=== PATIENT | male | born 1995 | race Caucasian/White ===

== ENCOUNTER 2019-12-22 16:13 | Observation (INO) | payer OTHER ==
[2019-12-22] MEDS ORDERED: NS 0.9% 1000 ML** 1,000 ML IV ONE (16:48)
[2019-12-22] MEDS ORDERED: Ondansetron INJ* 2 MG/ML VIAL IV ONE (16:48)
--- NOTE | 2019-12-22 16:49 | ED ---
Nausea/Vomiting/Diarrhea HPI - HPI Summary HPI Summary: Patient complains of intermittent nausea 1 week with 2 episodes of vomiting over that same week. Nausea is random onset, not related to eating. Patient states nausea has actually been improving over the past couple days but had abnormal labs per [facility], with elevated bilirubin and elevated liver enzymes. Patient's girlfriend also states patient's eyes appear to be more yellow. Patient also states his urine has been darker over the past few days. Patient was also tested for covid today. Results pending. Denies fever, cough , sore throat, CP, SOB, diarrhea, abdominal pain, change in BM. Denies known exposure or recent travel. Denies known contact exposure. Denies EtOH, IV drug use. Denies prior history of liver or gallbladder issues. Medical history is none. - History of Current Complaint Stated Complaint: ABNORMAL LABS PER PT Time Seen by Provider: 12/22/19 16:42 Hx Obtained From: Patient Onset/Duration: Gradual Onset, Lasting Days Timing: Intermittent Episodes Lasting: Severity Currently: Moderate Pain Scale Used: 0-10 Numeric Aggravating Factor(s): Nothing Nausea/Vomiting Presence: Nauseated Vomiting Characteristics: Nonbilious Diarrhea Presence: No - Allergies/Home Medications Allergies/Adverse Reactions: Allergies Allergy/AdvReac Type Severity Reaction Status Date / Time No Known Allergies Allergy Verified 12/22/19 17:20 Home Medications: Home Medications NK [No Home Medications Reported] 12/22/19 [History Confirmed 12/22/19] PMH/Surg Hx/FS Hx/Imm Hx Endocrine/Hematology History: Denies: Hx Anticoagulant Therapy Cardiovascular History: Denies: Hx Pacemaker/ICD Respiratory History: Denies: Hx Chronic Obstructive Pulmonary Disease (COPD) History: Denies: Hx Dialysis Sensory History: Denies: Hx Eye Prosthesis Opthamlomology History: Denies: Hx Legally Blind EENT History: Denies: Hx Deafness Neurological History: Denies: Hx Dementia - Family History Known Family History: Positive: Non-Contributory - Social History Alcohol Use: None Hx Substance Use: No Hx Tobacco Use: No Review of Systems Constitutional: Negative Positive: Other - yellowing ENT: Negative Cardiovascular: Negative Respiratory: Negative Positive: Vomiting, Nausea Genitourinary: Negative Musculoskeletal: Negative Skin: Negative Neurological/Mental Status: Negative Psychological: Normal All Other Systems Reviewed And Are Negative: Yes Physical Exam - Summary Physical Exam Summary: Patient's corneas appear to be mildly jaundiced. Abdomen soft nontender. No apparent distress. Triage Information Reviewed: Yes Vital Signs Reviewed: Yes Appearance: Positive: Well-Appearing Skin: Positive: Warm Head/Face: Positive: Normal Head/Face Inspection Eyes: Positive: Other: ENT: Positive: Normal ENT inspection Neck: Positive: Supple Respiratory/Lung Sounds: Positive: Clear to Auscultation Cardiovascular: Positive: Normal Abdomen Description: Positive: Nontender Musculoskeletal: Positive: Normal Neurological: Positive: Normal Psychiatric: Positive: Normal AVPU Assessment: Alert - Fatoumata Coma Scale Best Eye Response: 4 - Spontaneous Best Motor Response: 6 - Obeys Commands Best Verbal Response: 5 - Oriented Coma Scale Total: 15 Procedures - Sedation Patient Received Moderate/Deep Sedation with Procedure: No Diagnostics - Laboratory Result Diagrams: 12/22/19 17:30 12/22/19 17:30 Lab Statement: Any lab studies that have been ordered have been reviewed, and results considered in the medical decision making process. Naus/Vom/Diarrhea Course/Dx - Course Course Of Treatment: Patient complains of intermittent nausea 1 week with 2 episodes of vomiting over that same week. Nausea is random onset, not related to eating. Patient states nausea has actually been improving over the past couple days but had abnormal labs per [facility], with elevated bilirubin and elevated liver enzymes. Patient's girlfriend also states patient's eyes appear to be more yellow. Patient also states his urine has been darker over the past few days. Patient was also tested for covid today. Results pending. Denies fever, cough, sore throat, CP, SOB, diarrhea, abdominal pain, change in BM. Denies known exposure or recent travel. Denies known contact exposure. Denies EtOH, IV drug use. Denies prior history of liver or gallbladder issues. Medical history is none. Vital signs within normal limits. WBC 16.6. Hemoglobin 13.7. Normal INR and PTT. Total Bilirubin 6.4. AST 236. ALT 483. Alkaline phosphatase 500. Ammonia 76. Ultrasound of gallbladder and liver unremarkable. Grimes positive. Discussed patient exam and findings with GI Dr. Keenan who recommended admission for observation as patient is [employer] student , does not have a local primary care. Dr. Keenan will be in hospital tomorrow and cannot see patient in clinic. Admitted to hospitalist - Differential Dx/Diagnosis Provider Diagnosis: Elevated LFTs, Total bilirubin, elevated, Elevated alkaline phosphatase level, Jaundice, Mononucleosis Condition At Discharge: Stable Discharge ED - Sign-Out/Discharge Documenting (check all that apply): Patient Departure - Discharge Plan Condition: Stable Disposition: ADMITTED TO [facility] - Billing Disposition and Condition Condition: STABLE Disposition: Admitted to [facility]
[2019-12-22 17:40] LABS: Hematocrit 41 % (42-52); Hemoglobin 13.7 g/dL (14.0-18.0); Mean Corpuscular HGB Conc 34 g/dL (31-36); Mean Corpuscular Hemoglobin 29 pg (27-31); Mean Corpuscular Volume 85 fL (80-94); Mean Platelet Volume 8.6 fL (7.4-10.4); Platelet Count 172 10^3/uL (150-450); Red Blood Count 4.77 10^6 /uL (4.18-5.48); Red Cell Distribution Width 15 % (10-15); White Blood Count 16.6 10^3/uL (3.5-10.8)
[2019-12-22 17:49] LABS: Activated Partial Thrombo Time 36.3 seconds (26.0-38.0); INR 1.03 (0.82-1.09)
[2019-12-22 17:58] LABS: Albumin 3.8 g/dL (3.2-5.2); BUN/Creatinine Ratio 9.2 (8-20); C Reactive Protein 7.47 mg/L (<8.01); Calcium 9.2 mg/dL (8.6-10.3); EGFR African American 93.4 (>60); EGFR Non-African American 77.2 (>60); Globulin 3.7 g/dL (2-4); Potassium 3.5 mmol/L (3.5-5.0); Total Bilirubin 6.4 mg/dL (0.2-1.0); Total Protein 7.5 g/dL (6.4-8.9)
[2019-12-22 18:43] LABS: Urine Appearance Clear; Urine Bilirubin 2+ (Negative); Urine Blood Negative (Negative); Urine Color Amber; Urine Glucose Negative (Negative); Urine Ketones Negative (Negative); Urine Nitrite Negative (Negative); Urine Protein Negative (Negative); Urine Specific Gravity 1.016 (1.010-1.030); Urine Urobilinogen Positive (Negative)
[2019-12-22 18:44] LABS: Hepatitis B Surface Antigen Nonreactive (Nonreactive)
[2019-12-22 19:01] LABS: Hepatitis C Antibody Negative (Negative)
[2019-12-22 19:25] LABS: ABS Basophils 0.1 10^3/ul (0-0.2); ABS Lymphocytes 12.6 10^3/ul (1.0-4.8); ABS Monocytes 1.4 10^3/ul (0-0.8); ABS Neutrophils 2.4 10^3/ul (1.5-7.7); Eosinophil % 0.1 %; Lymphocyte % 76.2 %; Nucleated Red Blood Cells % 0.1
[2019-12-22] MEDS ORDERED: Ondansetron INJ* 2 MG/ML VIAL IV PRN (22:49)
[2019-12-22] MEDS ORDERED: Enoxaparin(*) 40 MG/0.4 ML SYR SUBCUT SCH (23:00)
--- NOTE | 2019-12-23 00:54 | HP ---
CC: [facility]* ADMISSION HISTORY AND PHYSICAL: DATE OF ADMISSION: 12/22/19 PRIMARY CARE PROVIDER: [facility]. HEALTHCARE PROXY: His mother. CODE STATUS: Full. SOURCE OF INFORMATION: History obtained from interview with the patient, review of past medical records. Reliability is very good. CHIEF COMPLAINT: Abnormal labs. HISTORY OF PRESENT ILLNESS: This is a 23-year-old [employer] , living off campus with his girlfriend, has been in his usual state of health, traveled by car with his girlfriend to [place] approximately 3 weeks prior to presentation. He notes that they practiced social distancing en route, wore face masks, however, in 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 Nobody was sick there, drove home 1 week prior to presentation, and on returning home 1 week prior, started feeling more fatigued, was sleeping more, had an episode of nausea or vomiting 6 days prior to presentation and 5 days prior to presentation felt subjective fevers, almost every day, but did not have a thermometer to check. He had no diarrhea. No additional nausea or vomiting. He had good p.o. intake. He has an intermittent cough chronically, does not feel if it was any worse or better over the last week. No shortness of breath. No chest pain. He did note that his urine was getting darker. For this reason, he went to [facility] where his labs were checked. He notes that today he was feeling the best he has since 1 week ago. No additional nausea. Energy is starting to be better, although still does feel weak, has not felt febrile; however, his labs returned at [facility] notable for leukocytosis and abnormal LFTs for which he was directed to [facility]. PAST MEDICAL HISTORY: No known past medical history. PAST SURGICAL HISTORY: No past surgeries. MEDICATIONS: No home medications. ALLERGIES: No known drug allergies. FAMILY HISTORY: No history of gallbladder disease. SOCIAL HISTORY: [facility]. He drinks intermittently. No tobacco. REVIEW OF SYSTEMS: He denies sore throat, rhinorrhea, any indication of enlarged lymph nodes, or other sick contacts noticed. Girlfriend has also been feeling well. He endorses intermittent headache over the last week. PHYSICAL EXAMINATION GENERAL: Appears stated age, young, well nourished, non-ill appearing. VITAL SIGNS: In the emergency room, T-max is 99.3, blood pressure 137/75, heart rate is 95, respiratory rate is 16, he is 97% on room air. HEENT: Oropharynx clear. He has moist mucous membranes. Sclerae are anicteric. He has mild conjunctival icterus. NECK: He has non-elevated JVD. He has no cervical, supraclavicular, or posterior auricular lymphadenopathy. LUNGS: Lungs are clear to auscultation throughout in all puente. HEART: Regular rate and rhythm. No murmurs, rubs, or gallops. ABDOMEN: Soft, nontender, and nondistended. No Mcneil sign. Positive bowel sounds throughout. EXTREMITIES: Warm and well perfused. No clubbing, cyanosis, or edema. He has bruising on his right fourth finger as well as a small laceration. Otherwise, no skin lesion. NEUROLOGIC: He is alert and oriented x3. His cranial nerves II through XII are intact. Strength is intact. He has no apparent anxiety, agitation, or depression. DIAGNOSTIC STUDIES/LAB DATA: Labs are reviewed. White blood cell count is 16.6, neutrophils are 14.4%, lymphocytes are 76%, reactive lymphs are 18%, hemoglobin is 13.7. No prior for comparison. Platelets 172. INR is 1.0. Sodium is 133, BUN is 11, creatinine 1.19. Total bilirubin 6.4, direct bilirubin 4.2, AST 236, ALT 483, alk phos 500, ammonia is 76, CRP 7.47, lipase is 39. Urine is positive for urobilinogen and bilirubin. Serology is notable for mono screen positive, negative hepatitis viral panel. Data reviewed. Ultrasound of his gallbladder, liver is mildly echogenic. Gallbladder is contracted. No stones are seen. No focal tenderness. Common bile duct measures 2 mm, which is normal. Borderline enlarged mild fatty liver. ASSESSMENT AND PLAN: This is a 23-year-old man presenting with 1 week of fatigue, subjective fevers and nausea, found with abnormal liver enzymes. 1. Hyperbilirubinemia and abnormal liver function tests - can be consistent cholestasis in the setting of Patience-Quiroz virus. I suspect that this is the etiology given the positive test. Repeat LFTs tomorrow after hydration. The predominant portion is direct and he has an elevated alk phos, although his ultrasound is normal without indication of any level of obstruction. At this point, I am not going to order any additional testing. I did discuss with Dr. Keenan this evening and he will see the patient tomorrow. While elevated bilirubin is described in the literature in the setting of EBV, Dr. Keenan did feel this was quite high and elevated alkaline phosphatase was not completely consistent with the cholestasis in the setting of mononucleosis. Therefore, an observation stay for further monitoring was deemed necessary. 2. SARS-CoV-2 testing/COVID-19, symptoms are similarly consistent with COVID in the setting of fatigue and fevers in this young man, who has not been adequately practicing social distancing with his recent cross-country trip and visit with his family for 2 weeks with return 1 week prior to presentation. He does have a more likely etiology for subjective fever and is positive EBV; however, this does not rule out COVID. He currently lives with his girlfriend. We discussed that in the setting that he is ready for discharge, he will need to quarantine until his negative test returns. He will start discussing with his girlfriend in order for her to find another location should he be able to be discharged shortly in the next 1 or 2 days if the test has not returned. Until then, maintaining strict precautions in the hospital and symptomatic management. 3. Fatty liver indication that he may have a slightly enlarged fatty liver on ultrasound. This will be need further outpatient monitoring and counseling to prevent progression in this young man. 4. DVT prophylaxis: Lovenox. Of separate note, tomorrow is this patient's birthday and he is a senior at [employer]. Currently, socially isolating himself in important year. Please wish him happy birthday. [id number]/[facility] #: [id number] [facility]
[2019-12-23 06:05] LABS: Hematocrit 38 % (42-52); Mean Corpuscular HGB Conc 34 g/dL (31-36); Mean Corpuscular Hemoglobin 29 pg (27-31); Mean Corpuscular Volume 85 fL (80-94); Mean Platelet Volume 8.5 fL (7.4-10.4); Platelet Count 165 10^3/uL (150-450); Red Blood Count 4.46 10^6 /uL (4.18-5.48); Red Cell Distribution Width 15 % (10-15); White Blood Count 16.4 10^3/uL (3.5-10.8)
[2019-12-23 06:23] LABS: Albumin 3.4 g/dL (3.2-5.2); BUN/Creatinine Ratio 8.5 (8-20); Calcium 8.7 mg/dL (8.6-10.3); EGFR African American 84.3 (>60); EGFR Non-African American 69.6 (>60); Globulin 3.3 g/dL (2-4); Indirect Bilirubin 2.1 mg/dL (0.3-1.0); Potassium 4.1 mmol/L (3.5-5.0); Total Protein 6.7 g/dL (6.4-8.9)
--- NOTE | 2019-12-23 11:07 | CONS ---
GASTROENTEROLOGY CONSULT: DATE OF CONSULT: 12/23/19 CONSULTING PHYSICIAN: Aureliano Upton [facility] REASON FOR CONSULTATION: Jaundice and elevated liver function tests. 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 His illness began 8 days ago when he felt tired and then the next day, Sunday12/16/19, noted nausea and then he vomited a couple of times. His urine was dark. He thought maybe he was dehydrated. The anorexia and fatigue continued, possibly slowly improving by 12/19 His girlfriend, however, noticed that he seemed jaundiced on 12/21/19 and therefore he went to [facility] and had labs drawn. There was no further vomiting. He had no rash or fever or sore throat or neck. He denies taking any health food supplements, remedies, or bodybuilding drugs. He has not had any recent antibiotics. He was on a [place] trip to [place] visiting [facility] and [facility] about 3 hours away 09/10/19. He was not ill while there. He later developed a little bit of a nonproductive cough since August. There has not been fever with it. In his work, he does go through [employer] and has been exposed to cats and dogs, but none that were known to be ill. 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 He is not involved in necropsies. He and his girlfriend (also in animal science) have been living together for 4 months having known each other for a couple of years. He is generally in good health with no prior history of liver problems. No history of liver disease or blood disorders in the family. PAST MEDICAL HISTORY: Essentially negative. MEDICATIONS AT HOME: None. ALLERGIES: None known to drugs. 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 His girlfriend's family has a dairy farm near [place]. REVIEW OF SYSTEMS: No history of seizures, MS, clotting disorders, chronic lung disease, asthma, heart disease, syncope, hepatitis, blood donations, tattoos. PHYSICAL EXAMINATION: He is a tall, mildly overweight young man in no distress. He is fully bearded. He has no adenopathy. His lungs are clear. Heart sounds are regular. The abdomen is symmetric, mildly overweight, soft, and nontender. Rectal deferred. Extremities show no deformity or edema. LABS: Hemoglobin 13, INR 1.08, bilirubin 6, AST 236, ALT 483, alkaline phosphatase 500 - + [facility] Screen Right upper quadrant ultrasound - generous size to the liver and 2 mm common duct. Labs pending - EBV and CMV titers and cold agglutinins, haptoglobin and LDH. IMPRESSION: Jaundice and hepatocellular injury pattern, which is most likely from Patience-Quiroz virus given the absence of any other diagnostic leads Pending is further delineation of the exact antibodies assayed in the mononucleosis screen. At the moment, he seems to be stable, possibly improving and supportive care is likely all that is needed. The extent of hemolysis will be monitored if there are signs of it on the initial screening tests. [id number]/[facility] #: [id number] MTDD
[2019-12-23 16:46] VITALS: BP 122/72
--- NOTE | 2019-12-23 20:24 | DS ---
CC: [facility]; Dr. Michelle Enciso; Dr. Tyron Keenan* DISCHARGE SUMMARY: DATE OF ADMISSION: 12/22/19 DATE OF DISCHARGE: 12/23/19 PRIMARY CARE PROVIDER: [facility]. MY ATTENDING WHILE IN THE HOSPITAL: Michelle Enciso MD* (dictated by ARAVIND Baird). CONSULTING CHICKEN BONER: Tyron Keenan MD PRIMARY DISCHARGE DIAGNOSES: 1. Acute Patience-Quiroz virus infection. 2. Viral hepatitis likely related to the above. 3. COVID-19 rule out. SECONDARY DISCHARGE DIAGNOSIS: None. STUDIES DONE WHILE IN THE HOSPITAL: Gallbladder ultrasound from 12/22/19 read as contracted gallbladder, but no stones seen, but enlarged and mildly fatty liver. MEDICATIONS AT DISCHARGE: None. HOSPITAL COURSE: This is a brief summary of the patient's presentation. For more details, please see the history and physical from Devon Lopez MD on . In brief, the patient is a 24-year-old male with past medical history significant for the above, who presented to the emergency department 3 weeks after his traveling to [place] and returning 1 week prior to presentation. One day after returning, he began to feel nauseated with vomiting with subjective fevers, darkening of his urine. Day prior to his admission, his girlfriend noticed that he was becoming jaundiced and he was sent to [facility] for evaluation and was found to have leukocytosis and abnormal LFTs particularly with a markedly elevated bilirubin, alkaline phosphatase. Due to this, the patient was swabbed for COVID-19 and was referred to the emergency department for further evaluation. In the emergency department, these findings were confirmed. The patient had a negative gallbladder ultrasound as above for choledocholithiasis and was positive for the serologies for CMV, EBV were ordered. The patient had a direct and indirect hyperbilirubinemia with a decreased hemoglobin for his age. The patient had an LDH test, which was high at 482 and a cold agglutinin titer was sent for IgM autoimmune hemolytic anemia testing. None of these results were back at time of the patient's discharge. The patient was seen in consultation by Dr. Tyron Keenan, who believes that this constellation of symptoms was consistent with Patience-Quiroz virus infection. The patient was trying to feel better than he had the week before prior to discharge and his LFTs began to trend down on repeat from 12/22/19. The patient was stable and amenable for discharge to home on 12/23/19 with close followup with Dr. Tyron Keenan. PHYSICAL EXAMINATION ON THE DAY OF DISCHARGE: General: The patient is a 24- year- old male who appears stated age, is jaundiced and sitting in the bed, in no acute distress. Vital Signs: At time of evaluation, temperature 98.6, pulse rate 92, respiratory rate 14, oxygen saturation 96% on room air, blood pressure 122/72. HEENT: Head: Normocephalic, atraumatic. Sclerae anicteric. No conjunctival injection. Nasal mucosa is moist. Oral mucosa is moist. No pharyngeal erythema, discharge, or exudate. Neck: Supple, nontender. No lymphadenopathy. No carotid bruits auscultated. No JVD. Cardiac: Regular rate and rhythm. No clicks, murmurs, gallops, or rubs. Pulses 2+ in the bilateral dorsalis pedis, posterior tibialis and radial areas. Respiratory: Clear to auscultation bilaterally. No wheezes, rales, or rhonchi. Good air exchange bilaterally. Abdomen: Soft, nontender, nondistended. Bowel sounds present, normoactive in all 4 quadrants. No hepatomegaly. The spleen not attempted to be palpated. No abdominal bruits auscultated. No hepatojugular reflux. Genitourinary: No suprapubic or CVA tenderness. Skin: Jaundiced. No other rash. Neuro: Cranial nerves II through XII intact. No focal deficits. Alert and oriented x3. Psychiatric: Pleasant and cooperative. DISCHARGE PLAN: Patience-Quiroz virus with associated hepatitis. The patient has severe hepatitis, but this is known disease for Patience-Quiroz virus. The patient had been ruled out for COVID-19, though this is less likely to be issue based on his clinical presentation, lack of respiratory symptoms, and alternative diagnosis with local infection rates with respiratory or other viruses. The patient has been instructed to avoid contact sports. The patient to have symptomatic treatment, though he is not markedly symptomatic from anything at this time. The patient will follow up with repeat labs of a CBC, CMP, and LDH on , 12/25/19 and then follow up via Telemedicine with Dr. Tyron Keenan on 12/26/19. The patient at this point appears to possibly have a mild hemolytic anemia, which is common with acute infectious mononucleosis. DISPOSITION AT THE TIME OF DISCHARGE: Home. CONDITION AT THE TIME OF DISCHARGE: Stable. TIME SPENT: Approximately 45 minutes were spent on the discharge of this patient, 30 of which were spent [id number] with the patient obtaining history and physical and discussing treatment plan. ARAVIND BAIRD [id number]/[facility] #: [id number] RONAL
[2019-12-24 16:09] LABS: Haptoglobin 57 mg/dL (30 - 200)
[2019-12-25 09:40] LABS: Cytomegalovirus IgG Antibody Negative (Negative); EBV Capsid Ag IgG Ab Negative (Negative); EBV Capsid Ag IgM Ab Positive (Negative); Epstein-Barr Nuclear Antigen Negative (Negative)
== END 2019-12-23 18:00 | disposition home or self-care (01) ==
LOC: ED 16:13 → MED 22:49
PROVIDERS: ADMIT Internal Medicine; ATTEND Internal Medicine
DX: B27.00 Gammaherpesviral mononucleosis without complication (principal); R11.0 Nausea; R94.5 Abnormal results of liver function studies; B19.9 Unspecified viral hepatitis without hepatic coma; Z20.828 Contact with and (suspected) exposure to other viral communicable diseases; R17 Unspecified jaundice
CPT/HCPCS: 36415; 76705; 80048; 80053; 80074; 80076; 81003; 82140; 82248; 83010; 83615; 83690; 85025; 85060; 85610; 85730; 86140; 86157; 86308; 86644; 86645; 86664; 86665; 96372; 99284; G0378; J1650; J2405